=== PATIENT | female | born 1975 | race Caucasian/White ===

== ENCOUNTER 2021-08-30 08:15 | Outpatient (CLI) | payer OTHER, SELFPAY ==
--- NOTE | ~2021-08-30 | US_ITS ---
EXAMINATION: US thyroid EXAM DATE: 08/30/2021 08:45 INDICATION: left thyroid nodule. TECHNIQUE: Multiple grayscale and Doppler images of the thyroid were obtained (by a technologist who performed the scan) and subsequently reviewed. Individual nodules and recommendations may be reporte d in accordance with TI-RADS system as designated by the 2017 ACR White Paper TI-RADS committee. The re is no prior study for comparison. FINDINGS: The right there are lobe measures 3.5 x 0.9 x 1.4 cm, the left measuring 4.5 x 0.8 x 1.5 cm. Mildly h eterogeneous thyroid echogenicity. There are several small thyroid nodules identified. The largest solid thyroid nodule is in the right thyroid lobe midpole measuring 0.8 x 0.4 x 0.7, aileen d (2 points), hypoechoic (2 points), wider than tall, smooth well defined margin, without echogenic f oci, category TR4 for this nodule. Other nodules are smaller and/or cystic. IMPRESSION: Small thyroid nodules not likely clinically significant. Return to clinical follow-up and if additional palpable abnormality develops a repeat ultrasound can be obtained. Reviewed, dictated and finalized at location A. IMPRESSION: Small thyroid nodules not likely clinically significant. Return to clinical follow-up and if additional palpable abnormality develops a repeat ult rasound can be obtained.
== END 2021-08-30 08:16 ==
PROVIDERS: PCP Internal Medicine; Visit Provider Internal Medicine
DX: E07.9 Disorder of thyroid, unspecified (principal); E04.2 Nontoxic multinodular goiter
CPT/HCPCS: 76536

== ENCOUNTER 2022-11-17 00:43 | Day surgery (SDC) | payer BC, SELFPAY ==
[2022-11-03 13:14] VITALS: BMI 29.5
[2022-11-17 10:21] VITALS: BP 112/67; PULSE 73; RESP 16; TEMP 36.4; O2SAT 100; BMI 29.3
[2022-11-17] MEDS: LACTATED RINGERS 1,000 ML 150 ML IV CONT (10:28)
--- NOTE | 2022-11-17 11:00 | PM.HPGS ---
History of Present Illness History of Present Illness Consent: Risks, benefits, and alternatives have been discussed and questions answered. Patient agrees to proceed with procedure. Chief complaint: hx colon polyps, neoplasm screening Narrative: Sloane Braden is a 47 year old female here for first screening colonoscopy Review of Systems Constitutional: Constitutional: Denies headache(s) and Denies weakness Eyes: Eyes: Denies blurry vision ENT: Reports Normal hearing present, Denies headache(s) and Denies neck pain Cardiovascular: Cardiovascular: Denies chest pain and Denies dyspnea Respiratory: Respiratory: Denies dyspnea Gastrointestinal: Gastrointestinal: Reports no additional gastrointestinal complaints Genitourinary: Genitourinary: Denies dysuria Musculoskeletal: Musculoskeletal: Denies neck pain Integumentary/Breasts: Skin/Breast: Denies dry skin Neurologic: Reports Normal hearing present, Denies headache(s) and Denies weakness Psychiatric: Psychiatric: Denies anxiety Endocrine: Endocrine: Denies change in body appearance Hematologic/Lymphatic: Hematologic/Lymphatic: Denies easy bleeding Allergic/Immunologic: Allergic/Immunologic: Denies urticaria PMFSH Past Medical History Medical History (Updated 11/17/22 @ 11:00 by Kilo Hammond MD) Colon cancer screening Social History Social History Years smoked: 2 Smoking status: Former smoker Tobacco type: cigarettes Spiritual care concerns: No Meds Home Medications and Allergies Home Medications Medication Instructions Recorded Confirmed Type Abbey Allergy 1 tab-cap PO DAILY 11/03/22 11/17/22 History fluoxetine 20 mg capsule 20 mg PO DAILY 11/03/22 11/03/22 History Allergies Allergy/AdvReac Type Severity Reaction Status Date / Time nitrofurantoin Allergy Hives Verified 11/17/22 10:20 Vital Signs Vital Signs - 24 hr 11/17/22 10:21 Temperature 97.5 F L Pulse Rate 73 Respiratory Rate 16 Blood Pressure 112/67 Pulse Oximetry 100 Oxygen Delivery Room Air Exam Const: General: comfortable and no acute distress HENMT: Face/Nose/Sinus: Normal nares present Eyes: General: appearance normal, both eyes and all related structures Neck: Neck: no JVD Resp: Auscultation: clear to auscultation bilaterally Cardio: Rate: regular rate Rhythm: regular rhythm GI: Inspection: non-distended GI Palp: Yes Soft to palpation Skin: General skin exam: normal color Neuro: General: gait normal Speech: normal speech Extrem: General: normal to inspection Psych: Mental Status: mental status grossly normal Assessment and Plan Assessment and plan (1) Colon cancer screening: Code(s): Z12.11 - Encounter for screening for malignant neoplasm of colon Status: Acute Assessment and Plan: colonoscopy
--- NOTE | 2022-11-17 11:01 | P.PNAN_ITS ---
Anes - Initial Pre Proc Eval Procedure: Operation Date: 11/17/22 11:30 Proposed Procedures p Screening Colonoscopy - Kilo Hammond MD Date/Time: 11/17/22 11:01 Surgeon: Kilo Hammond MD Pre Op Diagnosis: hx colon polyps, neoplasm screening Patient Data Age: 47 Gender: F Height: 1.63 m Weight: 77.6 kg Last Vital Signs Temp 97.5 F L 11/17/22 10:21 Pulse 73 11/17/22 10:21 Resp 16 11/17/22 10:21 BP 112/67 11/17/22 10:21 Pulse Ox 100 11/17/22 10:21 O2 Del Method Room Air 11/17/22 10:21 Allergies Allergy/AdvReac Type Severity Reaction Status Date / Time nitrofurantoin Allergy Hives Verified 11/17/22 10:20 Home Medications Medication Instructions Recorded Confirmed Type Abbey Allergy 1 tab-cap PO DAILY 11/03/22 11/17/22 History fluoxetine 20 mg capsule 20 mg PO DAILY 11/03/22 11/03/22 History Patient hx anesthesia problems: none Family hx anesthesia problems: none Results Review: All pre-operative results and documents have been reviewed as part of the pre- operative evaluation. [facility] Past Medical History Medical History (Updated 11/17/22 @ 11:00 by Kilo Hammond MD) Colon cancer screening Social History Social History Years smoked: 2 Smoking status: Former smoker Tobacco type: cigarettes Spiritual care concerns: No Anes - Eval Final PreProcedure Day of Procedure 11/17/22 11:01 Patient weight: overweight Heart: regular rate and rhythm Lungs: clear to auscultation Airway: Mallampati scale class II Neurological: alert and oriented Last oral intake: >/= 8 hours ASA classification: II Emergent: no Anesthetic plan: proceed Anesthesia type and monitoring: general GIVS and standard monitoring Results Review: All pre-operative results and documents have been reviewed as part of the pre- operative evaluation. Informed Consent: The patient's anesthetic plan and its attendant risks and benefits were discussed with the patient/family/POA. Questions were solicited and answers provided to the satisfaction of the patient/family/POA.
[2022-11-17 11:17] VITALS: BP 95/60; PULSE 80; RESP 18; O2SAT 100
[2022-11-17 11:27] VITALS: BP 102/64; PULSE 72; RESP 21; O2SAT 100
[2022-11-17 11:37] VITALS: BP 115/67; PULSE 77; RESP 17; O2SAT 100
== END 2022-11-17 11:46 | disposition home or self-care (01) ==
PROVIDERS: PCP Internal Medicine; Visit Provider Internal Medicine Gastroenterology
PROC: 0DJD8ZZ Inspection of Lower Intestinal Tract, Via Natural or Artificial Opening Endoscopic (ICD-10-PCS; CPT 45378; principal; 2022-11-17 11:30)
DX: Z12.11 Encounter for screening for malignant neoplasm of colon (principal); K64.8 Other hemorrhoids; Z87.891 Personal history of nicotine dependence
CPT/HCPCS: 45378; J2704; J7120

== ENCOUNTER 2025-05-27 00:17 | Day surgery (SDC) | payer BC, SELFPAY ==
[2025-05-19 11:40] VITALS: BMI 29.4
--- NOTE | 2025-05-19 11:41 | SUR.PREOP ---
Addendum entered by Lucila Almanzar RN 05/20/25 12:15: Pt instructed no food after midnight and no clear liquids after 3:15 am. Pt verbalizes understanding. Original Note: Report to the Outpatient Waiting Room, entrance under the green pavilion located off [facility], at time ____914___ on date __05/27/2025 . Planned Procedure Time: __11:15___.? Time changes happen often and if your time is changed the preop area will call you the afternoon before. - You and your visitor will be asked to self-screen and do not enter if you have any COVID symptoms. Please call surgeon if you need to reschedule. - A mask is optional within the hospital at this time. Patients may have clear liquids (water, carbonated beverages, clear teas, apple juice) until 3 hours prior to surgery with a maximum of 20 ounces. - No food from midnight until time of surgery and no smoking, or chewing tobacco (or any form of nicotine). No chewing gum, candy or mints. - Infants may have breast milk until 4 hours before surgery, infant formula 6 hours prior to surgery. - Children will be allowed to drink immediately following surgery.? If applicable, please bring a bottle or sippy cup to assist with drinking. Juice, water, soda, and popsicles are readily available.? For infants on formula, please bring formula the day of surgery.? Pacifiers are allowed. Take only the following medications with a SIP of water on the morning of surgery: Fluoxetine DO NOT STOP ANY OF YOUR OTHER PRESCRIPTION MEDICATIONS PRIOR TO SURGERY EXCEPT THE FOLLOWING Hold all vitamins and supplements for 3 days per anesthesiologist. Medications to discontinue per physician N/A Date to take last dose N/A Please no make-up, nail namibian, hairspray, perfume, deodorant, or body powder the day of surgery.? No jewelry (including any body piercings) or valuables the day of surgery, leave them at home.? Please take a shower or bath the night before, or the morning of, surgery with an antibacterial soap.? Wear comfortable, loose fitting clothing.? Children are encouraged to wear pajamas. - Jewelry must be removed prior to entering the operating room.? Rings and piercings that are not removed may be cut off. - The hospital will not accept responsibility for valuables.? - Please leave all valuables, including medications, at home the day of surgery. If you are going home after surgery, a licensed parcel post truck driver must drive you home.? - NO public transportation without another adult if you receive anesthesia. - We recommend that an adult stay with you for 24 hours following discharge. - We also recommend that you do not drive, make important decision, drink alcoholic beverages, or take any drugs that were not prescribed by your health care provider for at least 24 hours after your discharge time. For Pediatric surgeries, we recommend two adults accompany the child home. Follow any additional instructions given to you from your surgeon. Telephone instructions given to ___Shannon and asked if any additional questions and then verbalized understanding. Patient advised to call surgeon office or pre surgery nurse liaison [phone] if any additional questions.
[2025-05-27] VITALS (12 sets, daily range): BP systolic 111–140; BP diastolic 55–81; PULSE 70–99; RESP 11–16; TEMP 36.1–36.3; O2SAT 92–100
--- NOTE | 2025-05-27 06:55 | P.HPUP_ITS ---
History and Physical Update Update Date/Time: 05/27/25 06:55 Patient seen and examined in pre-operative holding area. No interval change in medical history or symptoms. Patient remembers previous discussion of benefits and alternatives to procedure. Continues to desire to proceed with bilateral breast reduction . I reviewed the risks including but not limited to bleeding ,infection, asymmetry, undesireable cosmetic appearance, partial/total skin/nipple loss, no change or worsening of symptoms, change in sensation. I discussed the possible use of assistants and their level of participation in the case. Patient stated understanding and signed the consent form wishing to p nicole
--- NOTE | 2025-05-27 06:56 | P.OP_ITS ---
Procedure Note - Detailed Date of Procedure 05/27/25 Pre-op Diagnosis Hypertrophy of Bilateral Breast Post-op Diagnosis Same Procedure Performed b/l breast reduction Surgeon Russ Hernandes MD Senior Medical Billing Specialist latrice mancilla pa-c Anesthesia General Description of Procedure Patient was seen in the preoperative holding area where the breasts were marked for an inferior pedicle Mota pattern reduction. Consent form was signed. Patient was taken back to the operating room and placed on the table in the supine position. Time-out was performed with Anesthesia, surgeon, and staff agreeing on patient's name, site, and surgery to be performed. SCDs were placed on the lower extremities and inflated. Antibiotics were given IV. After general anesthesia was administered the breasts were prepped and draped in the usual sterile fashion. I take my attention to the right breast where I used a saline moistened lap pad and Michelle clamp to create a breast tourniquet. 38 mm nipple Sizer was used to circumscribe the nipple-areolar complex. I proceeded with de epithelializing a 9 cm wide inferior pedicle. I made my other skin incisions and then used Bovie cautery to elevate skin flaps and Caden's plane down to the chest wall. I proceeded with resection of 941 g of tissue from the right breast. I irrigated with normal saline. The pedicle was plicated with 2-0 Vicryl suture. 2-0 Prolene was used to secure the T-junction. 3-0 Vicryl was used for dermal closure. Nipple was brought out 5 cm above the inframammary fold at the most prominent portion of the breast at the breast midline and secured with 3-0 Vicryl suture for dermis. 4-0 Monocryl was used for subcuticular closure. The nipple and skin flaps appeared viable with good cap refill. Next I took my attention to the left breast with the sane procedure was performed. I used a saline moistened lap pad and Michelle clamp to create a breast tourniquet. 38 mm nipple Sizer was used to circumscribe the nipple- areolar complex. I proceeded with de epithelializing a 9 cm wide inferior pedicle. I made my other skin incisions and then used Bovie cautery to elevate skin flaps and Caden's plane down to the chest wall. I proceeded with resection of 923 g of tissue from the left breast which appeared reasonably symmetric to the reduced right breast. I irrigated with normal saline. The pedicle was plicated with 2-0 Vicryl suture. 2-0 Prolene was used to secure the T-junction. 3-0 Vicryl was used for dermal closure. Nipple was brought out 5 cm above the inframammary fold at the most prominent portion of the breast at the breast midline and secured with 3-0 Vicryl suture for dermis. 4-0 Monocryl was used for subcuticular closure. The nipple and skin flaps appeared viable with good cap refill. The breasts appeared symmetric in appearance. I proceeded with injecting 20 cc of 1% lidocaine with epinephrine and 0.5% Marcaine plain along the inframammary fold and anterior axillary line of each breast. A dressing of Mastisol, Steri- Strips, 4 x 4, ABDs and a breast binder was then applied. The patient was awakened from anesthesia and transferred to the recovery room in stable condition. Complications: None Estimated blood loss: 90 cc Disposition: Patient tolerated the procedure well and will be going home later today Latrice Mancilla PA-C was essential for positioning, retraction, closure and dressing placement [facility] Billing Surgery - Charge Forward: Surgery Billing ([id number] same for latrice adding )
--- NOTE | 2025-05-27 08:54 | P.PNAN_ITS ---
Anes - Initial Pre Proc Eval Procedure: Operation Date: 05/27/25 09:45 Proposed Procedures p Bilateral Breast Reduction - Russ Hernandes MD Date/Time: 05/27/25 08:54 Surgeon: Russ Hernandes MD Pre Op Diagnosis: Hypertrophy of Bilateral Breast Patient Data Age: 50 Gender: F Height: 1.65 m Weight: 80.2 kg Allergies Allergy/AdvReac Type Severity Reaction Status Date / Time nitrofurantoin Allergy Mild Unknown Verified 05/19/25 11:33 Home Medications ?Medication ?Instructions ?Recorded ?Confirmed ?Type fluoxetine 40 mg capsule 40 mg PO DAILY 05/05/24 05/19/25 History loratadine 10 mg tablet 10 mg PO DAILY 05/05/24 05/19/25 History multivitamin 1 tablet PO DAILY 05/05/24 05/19/25 History cephalexin 500 mg capsule 500 mg PO Q8H #21 caps 05/27/25 Rx hydrocodone 5 mg-acetaminophen 325 1 tablet PO Q6H PRN pain #16 tabs 05/27/25 Rx mg tablet Patient hx anesthesia problems: none Family hx anesthesia problems: none Results Review: All pre-operative results and documents have been reviewed as part of the pre- operative evaluation. [facility] Social History Social History Smoking status: Never smoker Substance use: never Living arrangements: with family Additional living arrangements comments: children Spiritual care concerns: No Anes - Eval Final PreProcedure Day of Procedure 05/27/25 08:54 Patient weight: overweight Heart: regular rate and rhythm Lungs: clear to auscultation Airway: Mallampati scale class II Neurological: alert and oriented Last oral intake: >/= 8 hours ASA classification: II Emergent: no Anesthetic plan: proceed Anesthesia type and monitoring: general LMA and standard monitoring Results Review: All pre-operative results and documents have been reviewed as part of the pre- operative evaluation. Informed Consent: The patient's anesthetic plan and its attendant risks and benefits were discussed with the patient/family/POA. Questions were solicited and answers provided to the satisfaction of the patient/family/POA.
[2025-05-27] MEDS: LACTATED RINGERS 1,000 ML 30 ML IV CONT ×2 (09:00→12:34)
[2025-05-27] MEDS: ACETAMINOPHEN 500 MG TABLET 1000 MG PO (09:00)
[2025-05-27 09:20] LABS: BEDSIDEPREGUCG Negative (Negative)
[2025-05-27] MEDS: ceFAZolin 2 GM in SODIUM CHLORIDE 0.9% IV 50 ML 100 ML IVPB (09:59)
[2025-05-27] MEDS: TRANEXAMIC ACID 1,000 MG/10 ML AMPUL 1000 MG IV PUSH (10:58)
--- NOTE | 2025-05-27 11:08 | S_PTH ---
PATIENT: Sloane Marsh LOC: [facility] U#:[id number] AGE/SX: 50/F ROOM: RE05/27/[address]: Russ Hernandes MD : 1975 BED: DIS: 05/27/2025 SPEC #: [id number] RECD: 05/27/25 13:03 STATUS: JOSE REQ #: [id number] ZEB: 05/27/25 11:[address]: Russ Hernandes DEPT: [facility] Surgical RECD BY: Hetal Shipman ENTERED: 05/27/25 13:03 SP TYPE: Surgical OTHR DR: TURF KEEPER PHYSICIAN Tissues: A - Breast Reduction B - Breast Reduction Procedures: Hematoxylin and Eosin Stain Gross and Microscopic Level 4
[2025-05-27] MEDS: fentaNYL CITRATE INJ (*CRX) 100 MCG/2 ML VIAL 25 MCG IV PUSH ×7 (12:53→14:03)
[2025-05-27] MEDS: SCOPOLAMINE 1 MG PATCH 1 PATCH TRANSDERM (13:11)
[2025-05-27] MEDS: oxyCODONE HCL (*CRX) 5 MG TAB IR PO (14:39)
== END 2025-05-27 15:30 | disposition home or self-care (01) ==
PROVIDERS: Physician Assistant Surgical; Visit Provider Plastic Surgery
PROC: 0HBV0ZZ Excision of Bilateral Breast, Open Approach (ICD-10-PCS; CPT 19318; principal; 2025-05-27 09:45)
DX: N62 Hypertrophy of breast (principal); Z79.891 Long term (current) use of opiate analgesic
CPT/HCPCS: 19318; 88305; J0690; A9270; J1100; J1171; J2003; J2250; J2405; J2704; J3010; J7120